=== PATIENT | female | born 1990 | race Caucasian/White ===

== ENCOUNTER 2018-08-01 18:14 | Emergency (ER) | payer OTHER ==
[~2018-08-01] VITALS: Ht 165.1 cm; Wt 90.7 kg
--- OUTSIDE RECORDS SUMMARY | 2018-08-01 18:17 | XMS REPORT | Encounter Summary ---
Author Organization Unknown Address [address] [place] [address] Phone [phone] Care Team Providers Care Manager Water [employer] Name Role Phone Tyrell Fuentes 3 [phone] Reason for Visit Medical Complaint Instructions 1. Acute pharyngitis rapid flu (A+B) rapid strep group A, throat sore throat: care instructions azithromycin 250 mg tablet 2. Exposure to Influenzavirus Tamiflu 75 mg capsule 3. Cough cough: care instructions Bromfed DM 2 mg-30 mg-10 mg/5 mL syrup 4. Nasal congestion fluticasone 50 mcg/actuation nasal spray,suspension Discussion Note: None recorded. Plan of Care Patient Instructions Take medication as prescribed. Follow up with your PCP within 2-3 days if symptoms get worse. Reminders Provider Appointments None recorded. Lab Rapid Flu (A+B) 07/24/2017 [facility] Rapid Strep Group a, Throat 07/24/2017 [facility] Referral None recorded. Procedures None recorded. Surgeries None recorded. Imaging None recorded. Medications Name Start Date acetaminophen 300 mg-codeine 30 mg tablet TAKE 1 TABLET EVERY 6 HOURS NEEDED FOR PAIN amoxicillin 875 mg-potassium clavulanate 125 mg tablet TAKE 1 TABLET BY MOUTH 2 (TWO) TIMES DAILY FOR 10 DAYS. amoxicillin-potassium clavulanate 1,000 mg-62.5 mg tablet,ext.rel 12hr TAKE 1 TABLET EVERY 12 HOURS FOR 14 DAYS azithromycin 250 mg tablet TAKE 2 TABLETS (500 MG) BY ORAL ROUTE ONCE DAILY FOR 1 DAY THEN 1 TABLET (250 MG) BY ORAL ROUTE ONCE DAILY FOR 4 DAYS benzonatate 200 mg capsule TAKE 1 CAPSULE BY MOUTH 3 (THREE) TIMES DAILY NEEDED FOR COUGH. Bromfed DM 2 mg-30 mg-10 mg/5 mL syrup Take 10 mL every 4 hours by oral route as needed for congestion/cough. cephalexin 500 mg capsule TAKE ONE CAPSULE BY MOUTH TWICE A DAY Cyclafem (28) 1 mg-35 mcg tablet TAKE 1 TABLET BY MOUTH DAILY. dicyclomine 10 mg capsule TAKE 1 CAPSULE BY MOUTH EVERY 8 HOURS NEEDED FOR ABDOMINAL CRAMPS OR ABDOMINAL DISCOMFORT fluticasone 50 mcg/actuation nasal spray,suspension [place] 1 spray twice a day by intranasal route as directed. gabapentin 300 mg capsule TAKJE 1 CAPSULE BY MOUTH 3 TIMES A DAY montelukast 10 mg tablet TAKE 1 TAB BY MOUTH DAILY. 5/10 olopatadine 0.1 % eye drops PLACE 1 DROP IN BOTH EYES 2 (TWO) TIMES DAILY. prednisone 20 mg tablet TAKE 1 TABLET EVERY DAY FOR 5 DAYS sulfamethoxazole 800 mg-trimethoprim 160 mg tablet TAKE 1 TABLET BY MOUTH 2 (TWO) TIMES DAILY FOR 3 DAYS. Tamiflu 75 mg capsule Take 1 capsule twice a day by oral route after meals for 5 days. Medications Administered None recorded. Vitals Height Weight BMI Blood Pressure 5 ft 5 in 180 lbs 30 kg/m2 120/82 mm[Hg] Lab Results Date Name Specimen Result Interpretation Description Value Range Status Address Rapid Strep Group a, Throat Result negative [facility]: [address] [place] [address] Swab Location Left and Right tonsillar pillars [facility]: [address] [place] [address] Rapid Flu (A+B) Influenza a negative [facility]: [address] [place] [address] Influenza B negative [facility]: [address] [place] [address] Allergies Code Code System Name Reaction Severity Status Onset NKDA Problems Name Status Onset Date Source Streptococcal Sore Throat Active Encounter Dysfunction of [place]ustachian Tube Active Encounter Otitis Active Encounter Otalgia Active Encounter Common Cold Active Encounter Acute Sinusitis Active Encounter Acute Pharyngitis Active Encounter Acute Upper Respiratory Infection Active Encounter Allergic Rhinitis Active Encounter Procedures Date Name Performed by Anesth Knee Area Surgery Information not available Vaccine List Vaccine Type influenza, injectable, quadrivalent 04/15/2017 influenza, seasonal, injectable 03/25/2015 Social History Smoking Status Never Smoker Past Encounters 07/24/2017 Acute Pharyngitis; Exposure to Influenzavirus; Cough; Nasal Congestion [facility]: [address] [place] [address], Ph. [phone] History of Present Illness Throat-Oral Complaint Reported By: Patient HPI: Location: throat. Quality: sore throat, productive cough, congested, dry or hacking cough. Severity: mild, moderate. Duration: 5 days. Onset/Timing: sudden. Context: no foreign travel, non-smoker, sick contact. Modifying factors: OTC medication. Associated Symptoms: no fever, no headache, no body aches, no shortness of breath, no wheezing, no change in number of pillows needed to sleep at night, no sweats, no significant weight gain, no significant weight loss, no vomiting, no diarrhea, no rash, no nausea, yellow-green, thick sputum, morning cough, sore throat; congestion also body aches Review of Systems:ROS as noted in the HPI Review of Systems Basic Reported By: Patient Physical Exam Adult Basic, Adult Female Complete, Adult Male Complete Reported By: Patient Constitutional: General Appearance: healthy-appearing, well-nourished, well-developed. Level of Distress: NAD. Ambulation: ambulating normally Psychiatric: Mental Status: active and alert. Orientation: to time, to place, to person Edr-Lmkg-Gtmnk-Throat: Ears: no lesions on external ear, no outer ear tenderness, EACs clear, TMs clear, TM mobility normal. Hearing: no hearing loss. Nose: no lesions on external nose, nares patent, no septal deviation, nasal passages clear, nasal discharge--rhinorrhea, post nasal drip. Lips, Teeth, and Gums: no mouth or lip ulcers, no bleeding gums, normal dentition. Oropharynx: moist mucous membranes, no exudates, tonsils not enlarged, erythema Neck: Lymph Nodes: anterior cervical LAD Lungs: Respiratory effort: no dyspnea, no tachypnea, no use of accessory muscles, no intercostal retractions. Auscultation: breath sounds normal, good air movement Cardiovascular: Heart Auscultation: RRR, no murmurs Neurologic: Gait and Station: normal gait, normal station
--- OUTSIDE RECORDS SUMMARY | 2018-08-01 18:17 | XMS REPORT | Encounter Summary ---
Author Organization Unknown Address [address] [place] [address] Phone [phone] Care Team Providers Care Financial Services Agent Name Role Phone Tyrell Fuentes 3 [phone] Reason for Visit Medical Complaint Instructions 1. Influenza with non-respiratory manifestation influenza (flu): care instructions rapid flu (A+B) fluticasone 50 mcg/actuation nasal spray,suspension Bromfed DM 2 mg-30 mg-10 mg/5 mL syrup 2. Acute pharyngitis sore throat: care instructions Lidocaine Viscous 2 % mucosal solution rapid strep group A, throat 3. Body mass index 25-29 - overweight A healthy lifestyle: care instructions Discussion Note: None recorded. Plan of Care Patient Instructions See care instructions provided. Reminders Provider Appointments None recorded. Lab Rapid Flu (A+B) 11/15/2017 [facility] Rapid Strep Group a, Throat 11/15/2017 [facility] Referral None recorded. Procedures None recorded. Surgeries None recorded. Imaging None recorded. Medications Name Start Date Bromfed DM 2 mg-30 mg-10 mg/5 mL syrup Take 10 mL every 4 hours by oral route as needed for congestion/cough. fluticasone 50 mcg/actuation nasal spray,suspension [place] 2 sprays every day by intranasal route for 14 days. Lidocaine Viscous 2 % mucosal solution Take 15 mL every 3-4 hours by oral route as needed for pain for 3 days. gargle and spit Singulair Medications Administered None recorded. Vitals Height Weight BMI Blood Pressure 5 ft 5 in 165 lbs 27.5 kg/m2 (1) 130/92 mm[Hg] (2) 124/84 mm[Hg] Lab Results Date Name Specimen Result Interpretation Description Value Range Status Address Rapid Strep Group a, Throat Result negative [facility]: [address] [place] [address] Swab Location Left and Right tonsillar pillars [facility]: [address] [place] [address] Rapid Flu (A+B) Influenza a positive [facility]: [address] [place] [address] Influenza B negative [facility]: [facility] Allergies Code Code System Name Reaction Severity Status Onset NKDA Problems No Known Problems Procedures Date Name Performed by Anesth Knee Area Surgery Information not available Vaccine List Vaccine Type influenza, injectable, quadrivalent 04/15/2017 influenza, seasonal, injectable 03/25/2015 Tdap 06/25/2013 Social History Smoking Status Never Smoker Past Encounters 11/15/2017 Influenza with Non-respiratory Manifestation; Acute Pharyngitis; Body Mass Index 25-29 - Overweight [facility]: [address] [place] [address], Ph. [phone] History of Present Illness Efgyy-Gpwylenqhl-Bjjkdgc Reported By: Patient HPI: Quality: sore throat, nasal/sinus congestion, dry cough. Duration: 3days. Context: no sick contacts, no foreign travel, non-smoker, allergies. Modifying factors: OTC medication. Associated Symptoms: no sputum production, no shortness of breath, no wheezing, no change in number of pillows needed to sleep at night, no sweats, no significant weight gain, no significant weight loss, no morning cough, no vomiting, no diarrhea, no rash, no nausea, no fever, no headache, fatigue, sore throat, muscle aches; b/l ear pain Review of Systems:ROS as noted in the HPI Review of Systems Basic Reported By: Patient Physical Exam Adult Basic, Adult Female Complete Reported By: Patient Constitutional: General Appearance: healthy-appearing, well-nourished, well-developed. Level of Distress: NAD. Ambulation: ambulating normally Psychiatric: Mental Status: active and alert. Orientation: to time, to place, to person Eyes: Lids and Conjunctivae: non-injected, no discharge, no pallor Pwq-Dhqn-Rmzrt-Throat: Ears: no lesions on external ear, no outer ear tenderness, EACs clear, TM opacified. Hearing: no hearing loss. Nose: no lesions on external nose, nares patent, no septal deviation, nasal passages clear, no sinus tenderness, nasal discharge--rhinorrhea, post nasal drip. Lips, Teeth, and Gums: no mouth or lip ulcers, no bleeding gums, normal dentition. Oropharynx: moist mucous membranes, no exudates, tonsils not enlarged, erythema Lungs: Respiratory effort: no dyspnea, no tachypnea, no use of accessory muscles, no intercostal retractions. Auscultation: breath sounds normal Cardiovascular: Heart Auscultation: RRR, no murmurs
--- OUTSIDE RECORDS SUMMARY | 2018-08-01 18:17 | XMS REPORT | Encounter Summary ---
Author Organization Unknown Address [address] [place] [address] Phone [phone] Care Team Providers Care Artist Mannequin Coloring Name Role Phone Tyrell Fuentes 3 [phone] Reason for Visit Medical Complaint Instructions 1. Viral upper respiratory tract infection benzonatate 200 mg capsule Medrol (Arjun) 4 mg tablets in a dose pack fluticasone 50 mcg/actuation nasal spray,suspension 2. Pain in throat sore throat: care instructions rapid strep group A, throat 3. Influenza-like symptoms rapid flu (A+B) 4. Body mass index 30+ - obesity body mass index: care instructions 5. Otalgia of left ear Discussion Note Pt is in NAD; Verbalizes understanding of all instructions with no questions at this time. Plan of Care Patient Instructions Stop dayquil and nyquil. Use over the counter chloraseptic spray as per package insert for sore throat. Take tylenol over the counter for pain/headache/fever as per pacakge insert. Take benzonatate for cough as directed. Take fluticasone as needed for congestion. [place] one spray in each nostril twice a day. Take a warm, steamy shower, blow your nose thereafter, and spray in each nostril. Tilt your h ead up for about 10 seconds and breath through your mouth. Do not sniff or snort the medication in or else the medication will go to your throat and not be absorbed appropriately. Take steroid pack as directed. Take medications as prescribed and follow up with a PCP within 2-3 if symptoms worsen as discussed. Recommend monitor BP at home and document, bring BP log to PCP for review. Recommend follow a low sodium diet and exercise 30-45 mins/d 3-4 days a week once symtpoms resolve. Reminders Provider Appointments None recorded. Lab Rapid Flu (A+B) 03/12/2018 [facility] Rapid Strep Group a, Throat 03/12/2018 [facility] Referral None recorded. Procedures None recorded. Surgeries None recorded. Imaging None recorded. Medications Name Start Date amitriptyline 10 mg tablet benzonatate 200 mg capsule Take 1 capsule 3 times a day by oral route as needed. Cyclafem 35 (28) 1 mg-35 mcg tablet fluticasone 50 mcg/actuation nasal spray,suspension [place] 2 sprays every day by intranasal route as needed. Medrol (Arjun) 4 mg tablets in a dose pack Take PO as directed Medications Administered None recorded. Vitals Height Weight BMI Blood Pressure 5 ft 5 in 180 lbs 30 kg/m2 112/74 mm[Hg] Lab Results Date Name Specimen Result Interpretation Description Value Range Status Address Rapid Strep Group a, Throat Result negative [facility]: [address] [place] [address] Swab Location Left and Right tonsillar pillars [facility]: [address] [place] [address] Rapid Flu (A+B) Influenza a negative [facility]: [address] [place] [address] Influenza B negative [facility]: [address] [place] [address] Allergies Code Code System Name Reaction Severity Status Onset NKDA Problems Name Status Onset Date Source Body Mass Index 30+ - Obesity Active 03/12/2018 Migraine Active 03/12/2018 Pain in Throat Active 03/12/2018 Viral Upper Respiratory Tract Infection Active 03/12/2018 Influenza-like Symptoms Active 03/12/2018 Procedures Date Name Performed by Anesth Knee Area Surgery Information not available Vaccine List Vaccine Type influenza, injectable, quadrivalent 04/15/2017 influenza, seasonal, injectable 03/25/2015 meningococcal, unspecified formulation 06/25/2009 Tdap 06/25/2013 Social History Smoking Status Never Smoker Past Encounters 03/12/2018 Viral Upper Respiratory Tract Infection; Pain in Throat; Influenza-like Symptoms; Body Mass Index 30+ - Obesity; Otalgia of Left Ear Darlin Aleman, RN [facility]: [address] [place] [address], Ph. History of Present Illness Pehixhd-Vlctk-Ziu Reported By: Patient HPI: Quality: symptoms worse during the day. Duration: 2 days. Context: no ill contacts, no tick/insect bites, no recent travel, no new medications. Associated Symptoms: no fever/chills, no muscle aches, no rash, no lethargy, headache, cough, nasal passage blockage (stuffiness), nasal discharge; left ear pain and sore throat. Modifying Factors nothing gives relief Ear Complaint Reported By: Patient HPI: Location: left. Quality: sharp, aching. Severity: continuous, mild, current pain 3/10. Duration: constant; X 2 days. Onset/Timing: still present, gradual. Context: no sick contacts, no recent swimming/water in ear, no exposure to second hand smoke, no head trauma, not grinding teeth, no recent air travel. Modifying factors: does not hurt to lie on, or pull on ear, does not hurt to chew, nothing makes it worse. Associated Symptoms: no discharge from the ears, no popping noise in the ears, no ringing in the ears, no fever, no chills, no dizziness, no vertigo, no muscle aches, nose/sinus problems, earache, headache; sore throat and dry cough Note:
Review of Systems Basic Reported By: Patient Constitutional: Constitutional: no fever Eyes: Eyes: no eye complaints Jfpk-Fovr-Owyhd-Throat: Ears: ear pain. Nose: nose/sinus problems. Mouth/Throat: no bleeding gums, no mouth complaints, no teeth problems, sore throat Cardiovascular: Cardiovascular: no chest pain, no shortness of breath, no known heart murmur Respiratory: Respiratory: no wheezing, no shortness of breath, cough Gastrointestinal: Gastrointestinal: no abdominal pain, no vomiting / diarrhea Genitourinary: Genitourinary: no urinary complaints, no discharge Musculoskeletal: Musculoskeletal: no muscle aches, no muscle weakness, no arthralgias/joint pain, no back pain Skin: Skin: no abnormal / changing mole, no jaundice, no rashes Neurologic: Neurologic: no loss of consciousness, no weakness, no numbness, no seizures, no dizziness, headache Physical Exam Adult Basic, Adult Male Complete Reported By: Patient Constitutional: General Appearance: obese. Level of Distress: NAD. Ambulation: ambulating normally Psychiatric: Mental Status: active and alert. Orientation: to time, to place, to person Eyes: Lids and Conjunctivae: non-injected, no discharge, no pallor. Corneas: grossly intact. Lens: clear Hti-Qdoh-Plxcp-Throat: Ears: no lesions on external ear, no outer ear tenderness, EACs clear, TMs clear. Hearing: no hearing loss. Nose: no lesions on external nose, nares patent, no septal deviation, nasal passages clear, no sinus tenderness, nasal discharge--rhinorrhea, post nasal drip; B/L NTs pale and edematous. Lips, Teeth, and Gums: no mouth or lip ulcers, no bleeding gums, normal dentition. Oropharynx: moist mucous membranes, no erythema, no exudates, tonsils not enlarged Neck: Neck: supple. Lymph Nodes: no cervical LAD Lungs: Respiratory effort: no dyspnea, no tachypnea, no use of accessory muscles, no intercostal retractions. Auscultation: breath sounds normal, good air movement Cardiovascular: Heart Auscultation: RRR, no murmurs Neurologic: Gait and Station: normal gait, normal station. Cranial Nerves: grossly intact
--- OUTSIDE RECORDS SUMMARY | 2018-08-01 18:17 | XMS REPORT | Encounter Summary ---
Author Organization Unknown Address [address] [place] [address] Phone [phone] Care Team Providers Care Student Teacher Name Role Phone Tyrell Fuentes 3 [phone] Reason for Visit Medical Complaint Instructions 1. Viral upper respiratory tract infection benzonatate 200 mg capsule Medrol (Arjun) 4 mg tablets in a dose pack fluticasone 50 mcg/actuation nasal spray,suspension 2. Pain in throat sore throat: care instructions rapid strep group A, throat 3. Influenza-like symptoms rapid flu (A+B) 4. Otalgia of left ear 5. Body mass index 30+ - obesity body mass index: care instructions Discussion Note Pt is in NAD; Verbalizes understanding of all instructions with no questions at this time. Plan of Care Patient Instructions Stop dayquil and nyquil. Use over the counter chloraseptic spray as per package insert for sore throat. Take tylenol over the counter for pain/headache/fever as per pacakge insert. Take benzonatate for cough as directed. Take fluticasone as needed for congestion. [place] one spray in each nostril twice a [...] day by oral route as needed. Cyclafem 135 (28) 1 mg-35 mcg tablet fluticasone 50 mcg/actuation nasal spray,suspension [place] 2 sprays every day by intranasal route [...] a, Throat Result negative [facility]: [address] [place] [address] Swab Location Left and Right tonsillar pillars [facility]: [address] [place] [address] Rapid Flu (A+B) Influenza a negative [facility]: [address] [place] [address] Influenza B negative [facility]: [address] [place] [address] Allergies Code Code System Name Reaction Severity Status Onset NKDA Problems Name Status Onset Date Source Body Mass Index 30+ - Obesity Active 03/12/2018 Migraine Active 03/12/2018 Pain in Throat Active 03/12/2018 Viral Upper Respiratory Tract Infection Active 03/12/2018 Influenza-like Symptoms Active 03/12/2018 Otalgia of Left Ear Active 03/12/2018 Procedures Date Name Performed by Anesth Knee Area Surgery Information not available Vaccine List Vaccine Type influenza, injectable, quadrivalent 04/15/2017 influenza, seasonal, injectable 03/25/2015 meningococcal, unspecified formulation 06/25/2009 Tdap 06/25/2013 Social History Smoking Status Never Smoker Past Encounters 03/12/2018 Viral Upper Respiratory Tract Infection; Pain in Throat; Influenza-like Symptoms; Otalgia of Left Ear; Body Mass Index 30+ - Obesity Darlin Aleman, ELECTRICAL LABORATORY TECHNICIAN-C: [address] [place] [address], Ph. History of Present Illness Ftbbesq-Dmkvy-Gkl Reported By: Patient HPI: Quality: symptoms worse [...] no fever Eyes: Eyes: no eye complaints Zqjr-Fgxv-Fsakc-Throat: Ears: ear pain. Nose: nose/sinus problems. Mouth/Throat: [...] no pallor. Corneas: grossly intact. Lens: clear Xuj-Ydds-Wwadx-Throat: Ears: no lesions on external ear, no [...]
--- OUTSIDE RECORDS SUMMARY | 2018-08-01 18:17 | XMS REPORT | Continuity of Care Document ---
Author Author Manjit [facility] Interface Address Unknown Phone Unavailable Problems Problem Status Onset Date Classification Date Reported Comments Source Otalgia of left ear 03/12/2018 Diagnosis 03/12/2018 [facility] Pain in throat 03/12/2018 Diagnosis 03/12/2018 [facility] Viral upper respiratory tract infection 03/12/2018 Diagnosis 03/12/2018 [facility] Influenza-like symptoms 03/12/2018 Diagnosis 03/12/2018 [facility] Body mass index 30+ - obesity 03/12/2018 Diagnosis 03/12/2018 [facility] Body Mass Index 30+ - Obesity 03/12/2018 Problem 03/12/2018 [facility] Migraine 03/12/2018 Problem 03/12/2018 [facility] Pain in Throat 03/12/2018 Problem 03/12/2018 [facility] Viral Upper Respiratory Tract Infection 03/12/2018 Problem 03/12/2018 [facility] Influenza-like Symptoms 03/12/2018 Problem 03/12/2018 [facility] Otalgia of Left Ear 03/12/2018 Problem 03/12/2018 [facility] Acute pharyngitis 11/15/2017 Diagnosis 11/15/2017 [facility] Influenza with non-respiratory manifestation 11/15/2017 Diagnosis 11/15/2017 [facility] Body mass index 25-29 - overweight 11/15/2017 Diagnosis 11/15/2017 [facility] Exposure to Influenzavirus 07/24/2017 Diagnosis 07/24/2017 [facility] Cough 07/24/2017 Diagnosis 07/24/2017 [facility] Nasal congestion 07/24/2017 Diagnosis 07/24/2017 [facility] Streptococcal Sore Throat Problem 07/24/2017 [facility] Dysfunction of Eustachian Tube Problem 07/24/2017 [facility] Otitis Problem 07/24/2017 [facility] Otalgia Problem 07/24/2017 [facility] Common Cold Problem 07/24/2017 [facility] Acute Sinusitis Problem 07/24/2017 [facility] Acute Pharyngitis Problem 07/24/2017 [facility] Acute Upper Respiratory Infection Problem 07/24/2017 [facility] Allergic Rhinitis Problem 07/24/2017 [facility] Medications Medication Details Route Status Patient Instructions Ordering Provider Order Date Source Amitriptyline Hydrochloride 10 MG Oral Tablet amitriptyline 10 mg tablet Active [facility] benzonatate 200 MG Oral Capsule benzonatate 200 mg capsule Take 1 capsule 3 times a day by oral route as needed. Active [facility] Ethinyl Estradiol 0.035 MG / Norethindrone 1 MG Oral Tablet Cyclafem 1/35 (28) 1 mg-35 mcg tablet Active [facility] Fluticasone propionate 0.05 MG/ACTUAT Metered Dose Nasal [place] fluticasone 50 mcg/actuation nasal spray,suspension [place] 2 sprays every day by intranasal route as needed. Active [facility] Medrol (Arjun) 4 mg tablets in a dose pack Medrol (Arjun) 4 mg tablets in a dose pack Take PO as directed Active [facility] Brompheniramine Maleate 0.4 MG/ML / Dextromethorphan Hydrobromide 2 MG/ML / Pseudoephedrine Hydrochloride 6 MG/ML Oral Solution [Bromfed DM] Bromfed DM 2 mg-30 mg-10 mg/5 mL syrup Take 10 mL every 4 hours by oral route as needed for congestion/cough. Active [facility] Lidocaine Hydrochloride 20 MG/ML Mucous Membrane Topical Solution Lidocaine Viscous 2 % mucosal solution Take 15 mL every 3-4 hours by oral route as needed for pain for 3 days. gargle and spit Active [facility] Singulair Singulair Active [facility] Acetaminophen 300 MG / Codeine Phosphate 30 MG Oral Tablet acetaminophen 300 mg-codeine 30 mg tablet TAKE 1 TABLET EVERY 6 HOURS NEEDED FOR PAIN Active [facility] Amoxicillin 875 MG / Clavulanate 125 MG Oral Tablet amoxicillin 875 mg-potassium clavulanate 125 mg tablet TAKE 1 TABLET BY MOUTH 2 (TWO) TIMES DAILY FOR 10 DAYS. Active [facility] 12 HR Amoxicillin 1000 MG / Clavulanate 62.5 MG Extended Release Oral Tablet amoxicillin-potassium clavulanate 1,000 mg-62.5 mg tablet,ext.rel 12hr TAKE 1 TABLET EVERY 12 HOURS FOR 14 DAYS Active [facility] Azithromycin 250 MG Oral Tablet azithromycin 250 mg tablet TAKE 2 TABLETS (500 MG) BY ORAL ROUTE ONCE DAILY FOR 1 DAY THEN 1 TABLET (250 MG) BY ORAL ROUTE ONCE DAILY FOR 4 DAYS Active [facility] Cephalexin 500 MG Oral Capsule cephalexin 500 mg capsule TAKE ONE CAPSULE BY MOUTH TWICE A DAY Active [facility] Dicyclomine Hydrochloride 10 MG Oral Capsule dicyclomine 10 mg capsule TAKE 1 CAPSULE BY MOUTH EVERY 8 HOURS NEEDED FOR ABDOMINAL CRAMPS OR ABDOMINAL DISCOMFORT Active [facility] gabapentin 300 MG Oral Capsule gabapentin 300 mg capsule TAKJE 1 CAPSULE BY MOUTH 3 TIMES A DAY Active [facility] montelukast 10 MG Oral Tablet montelukast 10 mg tablet TAKE 1 TAB BY MOUTH DAILY. 11/01 Active [facility] olopatadine 1 MG/ML Ophthalmic Solution olopatadine 0.1 % eye drops PLACE 1 DROP IN BOTH EYES 2 (TWO) TIMES DAILY. Active [facility] Prednisone 20 MG Oral Tablet prednisone 20 mg tablet TAKE 1 TABLET EVERY DAY FOR 5 DAYS Active [facility] Sulfamethoxazole 800 MG / Trimethoprim 160 MG Oral Tablet sulfamethoxazole 800 mg-trimethoprim 160 mg tablet TAKE 1 TABLET BY MOUTH 2 (TWO) TIMES DAILY FOR 3 DAYS. Active [facility] Oseltamivir 75 MG Oral Capsule [Tamiflu] Tamiflu 75 mg capsule Take 1 capsule twice a day by oral route after meals for 5 days. Active [facility] Allergies, Adverse Reactions, Alerts Substance Category Reaction Severity Reaction type Status Date Reported Comments Source Immunizations Immunization Date Given Site Status Last Updated Comments Source influenza, injectable, quadrivalent 04/15/2017 completed [facility] influenza, seasonal, injectable 03/25/2015 completed [facility] Tdap 06/25/2013 completed [facility] meningococcal, unspecified formulation 06/25/2009 completed [facility] Results Order Name Results Value Reference Range Date Interpretation Comments Source RESULT negative 03/12/2018 [facility] SWAB LOCATION Left and Right tonsillar pillars 03/12/2018 [facility] Influenza A negative 03/12/2018 [facility] Influenza B negative 03/12/2018 [facility] RESULT negative 11/15/2017 [facility] SWAB LOCATION Left and Right tonsillar pillars 11/15/2017 [facility] Influenza A positive 11/15/2017 [facility] Influenza B negative 11/15/2017 [facility] RESULT negative 07/24/2017 [facility] SWAB LOCATION Left and Right tonsillar pillars 07/24/2017 [facility] Influenza A negative 07/24/2017 [facility] Influenza B negative 07/24/2017 [facility] Vital Signs Vital Sign Value Date Comments Source Diastolic (mm Hg) 74 03/12/2018 [facility] Height 65 03/12/2018 [facility] Systolic (mm Hg) 112 03/12/2018 [facility] Weight 180 03/12/2018 [facility] Diastolic (mm Hg) 84 11/15/2017 [facility] Height 65 11/15/2017 [facility] Systolic (mm Hg) 124 11/15/2017 [facility] Weight 165 11/15/2017 [facility] Diastolic (mm Hg) 82 07/24/2017 [facility] Height 65 07/24/2017 [facility] Systolic (mm Hg) 120 07/24/2017 [facility] Weight 180 07/24/2017 [facility] Encounters Location Location Details Encounter Type Encounter Number Reason For Visit Attending Provider ADM Date DC Date Status Source [place] - [facility] - [id number] Gabby Mckinnon [facility]: [address] [place] [address], Ph. [phone] [id number] Gabby Mckinnon 07/24/2017 [facility] [place] [facility] - [id number] Campoverde Baudilio [facility]: [address] [place] [address], Ph. [phone] [id number] Nirali Astudillo 11/15/2017 [facility] [place] [facility] - [id number] Darlin Aleman [facility]: [address] [place] [address], Ph. [id number] Darlin Aleman 03/12/2018 [facility] [place] [facility] - [id number] Aleman [facility]: [address] [place] [address], Ph. [id number] Darlin Aleman 03/12/2018 [facility] Procedures Procedure Code Date Perfomer Comments Source Anesth Knee Area Surgery [id number] [facility]
[2018-08-01 21:11] LABS: CLARITY,URINE SL CLOUDY (CLEAR); COLOR,URINE YELLOW (YELLOW); KETONES,URINE NEGATIVE (NEGATIVE); LEUKOCYTE ESTERASE ,URINE NEGATIVE (NEGATIVE); NITRITE,URINE NEGATIVE (NEGATIVE); PROTEIN,URINE DIPSTICK NEGATIVE (NEGATIVE)
[2018-08-01 21:12] LABS: BILIRUBIN,URINE NEGATIVE (NEGATIVE); PREGNANCY TEST, URINE NEGATIVE (NEGATIVE); URINE UROBILINOGEN 0.2 mg/dL (0.2 - 1)
[2018-08-01 21:13] LABS: AMPHETAMINES SCREEN,URINE NEGATIVE (NEGATIVE); BENZODIAZEPINES SCREEN,URINE NEGATIVE (NEGATIVE); PHENCYCLIDINE SCREEN,URINE NEGATIVE (NEGATIVE)
[2018-08-01 21:20] LABS: BACTERIA,URINE MANY /HPF; TRANSITIONAL EPI CELLS,URINE MODERATE; WBC,URINE (MAN) 0-5 /HPF (0-5)
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
== END 2018-08-01 23:17 | disposition home or self-care (01) ==
LOC: ER 18:14
DX: R10.84 Generalized abdominal pain (principal); V53.5XXA Driver of pick-up truck or van injured in collision with car, pick-up truck or van in traffic accident, initial encounter; Y92.488 Other paved roadways as the place of occurrence of the external cause
CPT/HCPCS: 74176; 80307; 81001; 81025; 99283